=== PATIENT | female | born 1985 | race Caucasian/White ===

== ENCOUNTER 2021-05-13 12:09 | Inpatient (IN) | payer SELFPAY ==
--- NOTE | 2021-05-13 14:07 | US ---
Biophysical profile: Multiple real-time images were obtained. Comparison: No previous study for current . Dates: Working TARA: 05/08/21, gestational age 40 weeks 5 days Current ultrasound: TARA 05/13/21, gestational age 40 weeks 0 days presentation: Breech Placenta: Posterior Amniotic fluid: KEYANA 15.8 cm Measurements: BPD: 9.70 cm - 39 weeks 5 days Head circumference: 34.26 cm - 39 weeks 4 days Abdominal circumference: 36.50 cm - 40 weeks 3 days Femur length: 7.79 cm - 39 weeks 6 days Estimated weight: 3984 g (8 lbs. 13 oz.), estimated weight at the 79th percentile for age by ultrasound Heart rate: 131 bpm Cervical length: 3.9 cm Biophysical profile: movement 2, breathing movement 2, tone 2, amniotic fluid volume 2 Impression: 1. Single intrauterine fetus currently breech in presentation. Dates as noted above. 2. 8 out of 8 on biophysical profile. Diagnostic code #1
[2021-05-14] MEDS ORDERED: Ondansetron 4 MG/2 ML SDV IVPUSH PRN ×2 (00:45→13:18)
[2021-05-14] MEDS ORDERED: Oxytocin/Lactated Ringers 10 UNIT/1,000 ML BAG IV SCH (00:45)
--- NOTE | 2021-05-14 05:30 | PCM.LDHP ---
L&D History of Present Illness - General Date of Service: 05/14/21 Admit Problem/Dx: Patient Status Order with Admit Dx/Problem 05/13/21 12:22 Patient Status [ADT] Routine 05/14/21 00:45 Patient Status [ADT] Stat Admission Diagnosis/Problem Admission Diagnosis/Problem Source of Information: Patient - History of Present Illness Introduction:: 35 year old at 40w5d by LMP consistent with ultrasound yesterday. Care with a tennis player. Planning to deliver at home but presented for "bpp and NST" for decreased movement. Two prior sections. On ultrasound was breech so agreed to repeat section. Did leave AMA first to go home and see her kids prior. Returned later than discussed and decision made for scheduled in the morning as reactive NST. Improves with: Reports: None Worsens with: Reports: None Associated Symptoms: Reports: N - Related Data Allergies/Adverse Reactions: Allergies Allergy/AdvReac Type Severity Reaction Status Date / Time Sulfa (Sulfonamide Allergy Shortness Verified 05/13/21 13:22 Antibiotics) of Breath Home Medications: Home Meds [place]-3 Fatty Acids/Fish Oil [[facility] Fish Oil 1,200 mg Softgel] 1 each PO DAILY 05/13/21 [History] No122/Iron/Folic Acid [ Multi Tablet] 1 each PO DAILY 05/13/21 [History] Past Medical History Genitourinary History: Reports: Other (See Below) Other Genitourinary History: Kidney stones during this , resolved 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: , Other (See Below) Other OB/BYN History: Previous x2 Musculoskeletal History: Reports: None - Past Surgical History Female Surgical History: Reports: None Musculoskeletal Surgical History: Reports: ORIF, Other (See Below) Other Musculoskeletal Surgeries/Procedures:: Right foot ORIF Dermatological Surgical History: Reports: None Social & Family History - Family History Family Medical History: No Pertinent Family History - Tobacco Use Tobacco Use Status *Q: Never Tobacco User Second Hand Smoke Exposure: No - Recreational Drug Use Recreational Drug Use: No H&P Review of Systems - Review of Systems: Review Of Systems: See Below General: Reports: No Symptoms HEENT: Reports: No Symptoms Pulmonary: Reports: No Symptoms Cardiovascular: Reports: No Symptoms Gastrointestinal: Reports: No Symptoms Genitourinary: Reports: No Symptoms Musculoskeletal: Reports: No Symptoms Skin: Reports: No Symptoms Psychiatric: Reports: No Symptoms Neurological: Reports: No Symptoms Hematologic/Lymphatic: Reports: No Symptoms Immunologic: Reports: No Symptoms L&D Exam - Exam Exam: See Below - Vital Signs Vital Signs: Last Vital Signs Temp 36.7 C 05/13/21 20:15 Pulse 85 05/13/21 20:15 Resp 16 05/13/21 20:15 BP 118/55 L 05/13/21 20:15 Pulse Ox 99 05/13/21 20:15 Weight: 69.4 kg - Exam General: Alert, Oriented HEENT: PERRLA, Conjunctiva Clear, EACs Clear, EOMI, Hearing Intact, Mucosa Moist & Victor, Nares Patent, Normal Nasal Septum, Posterior Pharynx Clear, TMs Clear Neck: Supple, Trachea Midline Lungs: Clear to Auscultation, Normal Respiratory Effort Cardiovascular: Regular Rate, Regular Rhythm GI/Abdominal Exam: Normal Bowel Sounds, Soft, Non-Tender, No Organomegaly, No Distention, No Abnormal Bruit, No Mass, Pelvis Stable Back Exam: Normal Inspection, Full Range of Motion Extremities: Normal Inspection, Normal Range of Motion, Non-Tender, No Pedal Kyle ma, Normal Capillary Refill Skin: Warm, Dry, Intact Neurological: Cranial Nerves Intact, Reflexes Equal Bilateral Psychiatric: Alert, Normal Affect, Normal Mood - Patient Data Lab Results Last 24 hrs: Laboratory Results - last 24 hr 05/13/21 05/13/21 05/13/21 Range/Units 15:40 16:00 16:00 WBC 12.96 H (3.98-10.04) K/mm3 RBC 4.63 (3.98-5.22) M/mm3 Hgb 12.9 (11.2-15.7) gm/dl Hct 39.6 (34.1-44.9) % MCV 85.5 (79.4-94.8) fl MCH 27.9 (25.6-32.2) pg MCHC 32.6 (32.2-35.5) g/dl RDW Std Deviation 40.3 (36.4-46.3) fL Plt Count 237 (182-369) K/mm3 MPV 9.5 (9.4-12.3) fl Neut % (Auto) 77.7 H (34.0-71.1) % Lymph % (Auto) 13.7 L (19.3-51.7) % [place] % (Auto) 7.2 (4.7-12.5) % Eos % (Auto) 0.4 L (0.7-5.8) Baso % (Auto) 0.2 (0.1-1.2) % Neut # (Auto) 10.08 H (1.56-6.13) K/mm3 Lymph # (Auto) 1.78 (1.18-3.74) K/mm3 [place] # (Auto) 0.93 H (0.24-0.36) K/mm3 Eos # (Auto) 0.05 (0.04-0.36) K/mm3 Baso # (Auto) 0.02 (0.01-0.08) K/mm3 RPR Non-reactive (NONREACTIVE) HIV-1 Ab Rapid Screen (NEGATIVE) SARS-CoV-2 RNA (KATIE) Negative (NEGATIVE) Blood Type Gel Antibody Screen 05/13/21 05/13/21 Range/Units 16:00 16:00 WBC (3.98-10.04) K/mm3 RBC (3.98-5.22) M/mm3 Hgb (11.2-15.7) gm/dl Hct (34.1-44.9) % MCV (79.4-94.8) fl MCH (25.6-32.2) pg MCHC (32.2-35.5) g/dl RDW Std Deviation (36.4-46.3) fL Plt Count (182-369) K/mm3 MPV (9.4-12.3) fl Neut % (Auto) (34.0-71.1) % Lymph % (Auto) (19.3-51.7) % [place] % (Auto) (4.7-12.5) % Eos % (Auto) (0.7-5.8) Baso % (Auto) (0.1-1.2) % Neut # (Auto) (1.56-6.13) K/mm3 Lymph # (Auto) (1.18-3.74) K/mm3 [place] # (Auto) (0.24-0.36) K/mm3 Eos # (Auto) (0.04-0.36) K/mm3 Baso # (Auto) (0.01-0.08) K/mm3 RPR (NONREACTIVE) HIV-1 Ab Rapid Screen Negative (NEGATIVE) SARS-CoV-2 RNA (KATIE) (NEGATIVE) Blood Type O POSITIVE Gel Antibody Screen Negative Result Diagrams: 05/13/21 16:00 Problem List Initiated/Reviewed/Updated: Yes Orders Last 24hrs: Active Orders 24 hr Category Date Time Status Patient Status [ADT] Stat ADT 05/14/21 00:45 Active Antiembolic Devices [RC] PER UNIT ROUTINE Care 05/14/21 00:46 Active Communication Order [RC] ROUTINE Care 05/14/21 00:45 Active Heart Tones [RC] PER UNIT ROUTINE Care 05/14/21 00:45 Active Non Stress Test [RC] PER UNIT ROUTINE Care 05/13/21 12:22 Active Insert Urinary Catheter [OM.PC] Routine Care 05/14/21 00:45 Ordered Peripheral IV Care [RC] . DIRECTED Care 05/14/21 00:46 Active Procedure Site Prep Instruct [RC] ASDIRECTED Care 05/14/21 00:45 Active Urinary Catheter Assessment [RC] ASDIRECTED Care 05/14/21 00:46 Active Verify Patient Consent Obtain [RC] PER UNIT ROUTINE Care 05/14/21 00:45 Active Vital Signs [RC] PER UNIT ROUTINE Care 05/13/21 12:22 Active Vital Signs [RC] PFP Care 05/14/21 00:45 Active Nothing Per Oral Diet [DIET] Diet 05/14/21 Breakfast Active HEPATITIS B SURFACE AG [CHEM] Stat Lab 05/13/21 16:00 Received RUBELLA ANTIBODY IGG [CHEM] Stat Lab 05/13/21 16:00 Received Citric Acid/Sodium Citrate [Bicitra Solution] Med 05/14/21 10:00 Once 30 ml PO ONETIME ONE Lactated Ringers [Ringers, Lactated] 1,000 ml Med 05/14/21 00:45 Active IV ASDIRECTED Metoclopramide [Reglan] Med 05/14/21 10:00 Once 10 mg IVPUSH ONETIME ONE Ondansetron [Zofran] Med 05/14/21 00:45 Active 4 mg IVPUSH Q4H PRN Oxytocin/Lactated Ringers [Pitocin in LR 10 Units/1,000 Med 05/14/21 00:45 Active ML] 10 unit in 1,000 ml IV ASDIRECTED Sodium Chloride 0.9% [Saline Flush] Med 05/14/21 09:00 Active 10 ml FLUSH 899,2099 ceFAZolin [Ancef] 2 gm Med 05/14/21 06:00 Active Premix Bag 1 bag IV ONETIME OB Panel [OM.PC] Stat Oth 05/13/21 15:40 Ordered Peripheral IV Insertion Adult [OM.PC] Routine Oth 05/14/21 00:45 Ordered Schedule Procedure [COMM] Per Unit Routine Oth 05/14/21 00:45 Ordered Sequential Compression Device [OM.PC] Routine Oth 05/14/21 00:45 Ordered Resuscitation Status Routine Resus Stat 05/13/21 12:22 Ordered Medication Orders Citric Acid/Sodium Citrate (Citric Acid/Sodium Citrate Solution 30 Ml Cup) 30 ml PO ONETIME ONE Stop: 05/14/21 10:01 Lactated Ringer's (Ringers, Lactated) 1,000 mls @ 125 mls/hr IV ASDIRECTED [facility] Cefazolin Sodium/Dextrose 2 gm (/ Premix) 50 mls @ 100 mls/hr IV ONETIME ONE Stop: 05/14/21 06:29 Oxytocin/Lactated Ringer's (Pitocin In Lr 10 Units/1,000 Ml) 10 unit in 1,000 mls @ 100 mls/hr IV ASDIRECTED [facility]; Protocol Metoclopramide HCl (Metoclopramide 10 Mg/2 Ml Sdv) 10 mg IVPUSH ONETIME ONE Stop: 05/14/21 10:01 Ondansetron HCl (Ondansetron 4 Mg/2 Ml Sdv) 4 mg IVPUSH Q4H PRN PRN Reason: Nausea/Vomiting Sodium Chloride (Sodium Chloride 0.9% 10 Ml Syringe) 10 ml FLUSH 0900,2100 [facility] Assessment/Plan Comment:: Term patient with no care, planned home delivery but agrees to repeat for breech. Risks, benefits and alternatives discussed and she states understanding and wishes to proceed. Labs pending.
[2021-05-14] MEDS ORDERED: ceFAZolin 2 GM in Premix Bag 1 BAG IV ONE ×2 (06:00→10:15)
[2021-05-14] MEDS ORDERED: Sodium Chloride 0.9% 10 ML Syringe FLUSH SCH (09:00)
[2021-05-14] MEDS ORDERED: Citric Acid/Sodium Citrate Solution 30 ML Cup PO ONE (10:00)
[2021-05-14] MEDS ORDERED: Metoclopramide 10 MG/2 ML SDV IVPUSH ONE (10:00)
[2021-05-14] MEDS: Lactated Ringers 1,000 ML IV SCH ×2 (10:14→12:06)
--- NOTE | 2021-05-14 10:24 | PCM.PREANE ---
Preanesthetic Assessment - Procedure Proposed Procedure: - Anesthesia/Transfusion/Family Hx Anesthesia History: Prior Anesthesia Without Reaction Family History of Anesthesia Reaction: No Transfusion History: No Prior Transfusion(s) Intubation History: Unknown - Review of Systems General: No Symptoms Pulmonary: No Symptoms Cardiovascular: No Symptoms Gastrointestinal: Abdominal Pain (uterine contractions) Neurological: No Symptoms Other: Reports: None - Physical Assessment NPO Status Date: 05/13/21 NPO Status Time: 23:00 Vital Signs: Last Vital Signs Temp 98.0 F 05/13/21 20:15 Pulse 85 05/13/21 20:15 Resp 16 05/13/21 20:15 BP 118/55 L 05/13/21 20:15 Pulse Ox 99 05/13/21 20:15 Height: 1.65 m Weight: 69.4 kg ASA Class: 2 Mental Status: Alert & Oriented x3 Airway Class: Mallampati = 2 Dentition: Reports: Normal Dentition Thyro-Mental Finger Breadths: 3 Mouth Opening Finger Breadths: 3 ROM/Head Extension: Full Lungs: Clear to Auscultation, Normal Respiratory Effort Cardiovascular: Regular Rate, Regular Rhythm (very mild murmur noted on exam) - Lab Values: Laboratory Last Values WBC 12.96 K/mm3 (3.98-10.04) H 05/13/21 16:00 RBC 4.63 M/mm3 (3.98-5.22) 05/13/21 16:00 Hgb 12.9 gm/dl (11.2-15.7) 05/13/21 16:00 Hct 39.6 % (34.1-44.9) 05/13/21 16:00 MCV 85.5 fl (79.4-94.8) 05/13/21 16:00 MCH 27.9 pg (25.6-32.2) 05/13/21 16:00 MCHC 32.6 g/dl (32.2-35.5) 05/13/21 16:00 RDW Std Deviation 40.3 fL (36.4-46.3) 05/13/21 16:00 Plt Count 237 K/mm3 (182-369) 05/13/21 16:00 MPV 9.5 fl (9.4-12.3) 05/13/21 16:00 Neut % (Auto) 77.7 % (34.0-71.1) H 05/13/21 16:00 Lymph % (Auto) 13.7 % (19.3-51.7) L 05/13/21 16:00 [place] % (Auto) 7.2 % (4.7-12.5) 05/13/21 16:00 Eos % (Auto) 0.4 (0.7-5.8) L 05/13/21 16:00 Baso % (Auto) 0.2 % (0.1-1.2) 05/13/21 16:00 Neut # (Auto) 10.08 K/mm3 (1.56-6.13) H 05/13/21 16:00 Lymph # (Auto) 1.78 K/mm3 (1.18-3.74) 05/13/21 16:00 [place] # (Auto) 0.93 K/mm3 (0.24-0.36) H 05/13/21 16:00 Eos # (Auto) 0.05 K/mm3 (0.04-0.36) 05/13/21 16:00 Baso # (Auto) 0.02 K/mm3 (0.01-0.08) 05/13/21 16:00 RPR Non-reactive (NONREACTIVE) 05/13/21 16:00 HIV-1 Ab Rapid Screen Negative (NEGATIVE) 05/13/21 16:00 SARS-CoV-2 RNA (KATIE) Negative (NEGATIVE) 05/13/21 15:40 Blood Type O POSITIVE 05/13/21 16:00 Gel Antibody Screen Negative 05/13/21 16:00 - Allergies Allergies/Adverse Reactions: Allergies Allergy/AdvReac Type Severity Reaction Status Date / Time Sulfa (Sulfonamide Allergy Shortness Verified 05/13/21 13:22 Antibiotics) of Breath - Acknowledgements Anesthesia Type Planned: General Anesthesia, Spinal Pt an Appropriate Candidate for the Planned Anesthesia: Yes Alternatives and Risks of Anesthesia Discussed w Pt/Guardian: Yes Pt/Guardian Understands and Agrees with Anesthesia Plan: Yes PreAnesthesia Questionnaire HEENT History: Reports: None Cardiovascular History: Reports: Heart Murmur (very mild on exam-patient has no history of murmur) Respiratory History: Reports: None Gastrointestinal History: Reports: None Genitourinary History: Reports: Other (See Below) Other Genitourinary History: Kidney stones during this , resolved 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: , Other (See Below) Other OB/BYN History: Previous x2 Musculoskeletal History: Reports: None Neurological History: Reports: None Psychiatric History: Reports: None Endocrine/Metabolic History: Reports: None Hematologic History: Reports: None Immunologic History: Reports: None Oncologic (Cancer) History: Reports: None Dermatologic History: Reports: None - Past Surgical History Female Surgical History: Reports: Section (x2) Musculoskeletal Surgical History: Reports: ORIF, Other (See Below) Other Musculoskeletal Surgeries/Procedures:: Right foot ORIF Dermatological Surgical History: Reports: None - SUBSTANCE USE Tobacco Use Status *Q: Never Tobacco User Tobacco Use Within Last Twelve Months: No Second Hand Smoke Exposure: No Days Per Week of Alcohol Use: 0 Number of Drinks Per Day: 0 Total Drinks Per Week: 0 Recreational Drug Use History: No - HOME MEDS Home Medications: Home Meds [place] Part-3 Fatty Acids/Fish Oil [[facility]vs Fish Oil 1,200 mg Softgel] 1 each PO DAILY 05/13/21 [History] No122/Iron/Folic Acid [ Multi Tablet] 1 each PO DAILY 05/13/21 [History] - CURRENT (IN HOUSE) MEDS Current Meds: Current Medications Lactated Ringer's (Ringers, Lactated) 1,000 mls @ 125 mls/hr IV ASDIRECTED [facility] Last Admin: 05/14/21 10:14 Dose: 125 mls/hr Documented by: Oxytocin/Lactated Ringer's (Pitocin In Lr 10 Units/1,000 Ml) 10 unit in 1,000 mls @ 100 mls/hr IV ASDIRECTED [facility]; Protocol Cefazolin Sodium/Dextrose 2 gm (/ Premix) 50 mls @ 100 mls/hr IV ONETIME ONE Stop: 05/14/21 10:44 Ondansetron HCl (Ondansetron 4 Mg/2 Ml Sdv) 4 mg IVPUSH Q4H PRN PRN Reason: Nausea/Vomiting Sodium Chloride (Sodium Chloride 0.9% 10 Ml Syringe) 10 ml FLUSH 0900,2100 [facility] Discontinued Medications Citric Acid/Sodium Citrate (Citric Acid/Sodium Citrate Solution 30 Ml Cup) 30 ml PO ONETIME ONE Stop: 05/14/21 10:01 Metoclopramide HCl (Metoclopramide 10 Mg/2 Ml Sdv) 10 mg IVPUSH ONETIME ONE Stop: 05/14/21 10:01
[2021-05-14] MEDS ORDERED: Bupivacaine 0.5% 30 ML SDV ONE (11:05)
[2021-05-14] MEDS ORDERED: Lactated Ringers 1,000 ML ONE (11:12)
[2021-05-14] MEDS ORDERED: Ondansetron 4 MG/2 ML SDV ONE (11:12)
[2021-05-14] MEDS ORDERED: Ketorolac 30 MG/ML SDV ONE (11:12)
[2021-05-14] MEDS ORDERED: Oxytocin 10 Units/1 ML SDV ONE ×2 (11:12→12:47)
[2021-05-14] MEDS ORDERED: Morphine PF 10 MG/10 ML SDV ONE (11:13)
[2021-05-14] MEDS ORDERED: ePHEDrine 50 MG/ML SDV ONE (12:25)
[2021-05-14] MEDS ORDERED: fentaNYL 100 MCG/2 ML SDV IVPUSH PRN (13:18)
[2021-05-14] MEDS ORDERED: diphenhydrAMINE 50 MG/ML SDV IVPUSH PRN ×2 (13:18→14:35)
--- NOTE | 2021-05-14 13:18 | PCM.POSTAN ---
POST ANESTHESIA ASSESSMENT - MENTAL STATUS Mental Status: Alert, Oriented - VITAL SIGNS Vital Signs: Last Vital Signs Temp 36.7 C 05/14/21 10:55 Pulse 78 05/14/21 10:55 Resp 16 05/14/21 10:55 BP 114/58 L 05/14/21 10:55 Pulse Ox 100 05/14/21 10:55 - RESPIRATORY Respiratory Status: Respiratory Rate WNL, Airway Patent, O2 Saturation Stable - CARDIOVASCULAR CV Status: Pulse Rate WNL, Blood Pressure Stable - GASTROINTESTINAL GI Status: No Symptoms - PAIN Pain Score: 2 - POST OP HYDRATION Hydration Status: Adequate & Stable
--- NOTE | 2021-05-14 13:27 | PCM.OPNOTE ---
- General Post-Op/Procedure Note Date of Surgery/Procedure: 05/14/21 Operative Procedure(s): section Findings: viable female, weight 9#, APGARS 8/9 at 1239. Normal pelvic anatomy Pre Op Diagnosis: prior , desires repeat Post-Op Diagnosis: Same Anesthesia Technique: Spinal Primary Surgeon: Marilu Alvarado Die Casting Machine Maintainer: Juan Francisco Reynoso Fluid Replacement, Intraop: 1,500 Output, Urine Amount: 350 EBL in mLs: 1,050 Complications: None Condition: Stable Free Text/Narrative:: The patient was taken to the operating room where spinal anesthesia was dosed to surgical levels without difficulty. The patient was prepped and draped in the usual sterile fashion in the dorsal supine position with a leftward tilt. A Pfannenstiel skin incision was made with the scalpel and carried through to the underlying layer of fascia. The fascia was incised in the midline and extended laterally using Cifuentes scissors. Fide clamps were used to elevate the superior aspect of the fascial incision, which was elevated, and the underlying rectus muscles were dissected off bluntly and using Cifuentes scissors. Attention was then turned to the inferior aspect of the fascial incision, which in similar fashion was grasped with Fide clamps, elevated, and the underlying rectus muscles were dissected off bluntly and using the cifuentes. The rectus muscles were dissected in the midline. The peritoneum was entered bluntly; this incision was extended superiorly and inferiorly with good visualization of the bladder. The bladder blade was inserted. The vesicouterine peritoneum was identified and entered sharply using Metzenbaum scissors. This incision was extended laterally and the bladder flap was created digitally. The bladder blade was reinserted. The lower uterine segment was incised in a transverse fashion using the scalpel and with digital traction. Clear fluid was noted. The infant was subsequently delivered by flexing the head to the incision. Body and shoulders followed without difficulty. The cord was clamped and cut at 90 seconds of life after pulsation stopped. The was subsequently handed to the awaiting nursery nurse and curator of manuscripts whose presence had been requested.. The placenta was delivered spontaneously intact with a three-vessel cord noted. The uterus was exteriorized and cleared of all clots and debris. The uterine incision was repaired in 2 layers using 0 monocryl. Hemostasis was visualized. Hemostasis was visualized bilaterally. The uterus was returned to the abdomen. The uterine incision was reexamined and it was noted to be hemostatic. The pelvis was copiously irrigated. The fascia was closed with 1 PDS suture, and the skin was closed with 3-0 monocryl. Sponge, lap, and instrument counts were correct x2. The patient was stable at the completion of the procedure and was subsequently transferred to the recovery room in stable condition.
[2021-05-14] MEDS ORDERED: Dextrose 5%-Lactated Ringers 1,000 ML IV SCH (14:35)
[2021-05-14] MEDS ORDERED: ePHEDrine 50 MG/ML SDV IVPUSH PRN (14:35)
[2021-05-14] MEDS ORDERED: Naloxone 0.4 MG/ML SDV IVPUSH PRN (14:35)
[2021-05-14] MEDS ORDERED: Acetaminophen/oxyCODONE 325-5 MG Tab PO PRN (14:35)
[2021-05-14] MEDS ORDERED: Dextrose 5%-Lactated Ringers 1,000 ML ONE (14:40)
[2021-05-14] MEDS: Ibuprofen 600 MG Tab PO PRN (23:59)
[2021-05-15] MEDS: Acetaminophen/oxyCODONE 325-5 MG Tab PO PRN ×3 (07:42→20:56)
--- NOTE | 2021-05-15 07:49 | PCM48HPAN ---
Post Anesthesia Note - EVALUATION WITHIN 48HRS OF ANESTHETIC Vital Signs in Normal Range: Yes Patient Participated in Evaluation: Yes Respiratory Function Stable: Yes Airway Patent: Yes Cardiovascular Function Stable: Yes Hydration Status Stable: Yes Pain Control Satisfactory: Yes Nausea and Vomiting Control Satisfactory: Yes Mental Status Recovered: Yes Vital Signs: Last Vital Signs Temp 36.4 C 05/15/21 03:33 Pulse 62 05/15/21 03:33 Resp 14 05/15/21 07:00 BP 102/55 L 05/15/21 03:33 Pulse Ox 98 05/15/21 03:33 - COMMENTS/OBSERVATIONS Free Text/Narrative:: mild aching in back. consulted this can be normal. pt voiced understanding. no questions or concerns. RN at bedside during assessment.
[2021-05-15] MEDS: Ibuprofen 600 MG Tab PO PRN ×2 (10:54→18:53)
--- NOTE | 2021-05-15 13:06 | PCM.SN.2 ---
- Free Text/Narrative Note: Post Operative Progress Note POD #1 Subjective: Doing well overall. Ambulating without difficulty. Lochia minimal. Ramirez draining clear urine. Not passing flatus at this. Tolerating regular diet without nausea or vomiting. Pain controlled with oral medications. Breast- feeding with minimal difficulty. Objective: Vitals: Vital Signs - 8 hr 05/15/21 05/15/21 05/15/21 09:00 10:00 11:05 Temperature 37.1 C Pulse, 75 Peripheral Respiratory 16 18 16 Rate Blood Pressure 114/52 L O2 Sat by Pulse 98 97 Oximetry Physical Exam General: Alert and oriented, no acute distress Lungs: Clear to auscultation bilaterally Heart: Regular rate and rhythm Abdomen: Soft, minimal appropriate tenderness, non-distended, fundus midline, nontender and at the umbilicus Incision: Clean, dry and intact, no erythema, bleeding or drainage with Steri- Strips in place Extremities: No edema in bilateral lower extremities, no calf tenderness bilaterally Labs: Laboratory Results - last 24 hr 05/13/21 05/15/21 Range/Units 16:00 06:20 WBC 12.70 H (3.98-10.04) K/mm3 RBC 3.95 L (3.98-5.22) M/mm3 Hgb 10.8 L D (11.2-15.7) gm/dl Hct 34.3 (34.1-44.9) % MCV 86.8 (79.4-94.8) fl MCH 27.3 (25.6-32.2) pg MCHC 31.5 L (32.2-35.5) g/dl RDW Std Deviation 40.9 (36.4-46.3) fL Plt Count 195 (182-369) K/mm3 MPV 9.1 L (9.4-12.3) fl Neut % (Auto) 77.9 H (34.0-71.1) % Lymph % (Auto) 11.5 L (19.3-51.7) % [place] % (Auto) 9.2 (4.7-12.5) % Eos % (Auto) 0.6 L (0.7-5.8) Baso % (Auto) 0.2 (0.1-1.2) % Neut # (Auto) 9.89 H (1.56-6.13) K/mm3 Lymph # (Auto) 1.46 (1.18-3.74) K/mm3 [place] # (Auto) 1.17 H (0.24-0.36) K/mm3 Eos # (Auto) 0.08 (0.04-0.36) K/mm3 Baso # (Auto) 0.02 (0.01-0.08) K/mm3 Hep Bs Antigen Nonreactive (NONREACTIVE) Rubella IgG Antibody Reactive (pos) (REACTIVE) ASSESSMENT: 35-year-old female -0-0-6 s/p repeat section POD #1 for history of section, complicated by history of section and care with a late rn assessment PLAN: Doing well Breast-feeding with minimal difficulty. Assist as needed Incision healing well. Continue to keep clean and dry. Lochia minimal. Continue to monitor for appropriate lochia. Continue routine post-operative care Anticipate discharge home tomorrow Juan Francisco Reynoso MD 1:05 PM 05/15/2021
[2021-05-16] MEDS: Acetaminophen/oxyCODONE 325-5 MG Tab PO PRN ×2 (02:30→09:32)
[2021-05-16] MEDS: Ibuprofen 600 MG Tab PO PRN ×2 (02:30→09:31)
[2021-05-16 03:14] VITALS: PULSE 63
--- NOTE | 2021-05-16 08:28 | PCM.DCSUM1 ---
Discharge Summary - Hospital Course Diagnosis: Stroke: No - Discharge Data Discharge Date: 05/16/21 Discharge Disposition: Home, Self-Care 01 Condition: Stable - Referral to Home Health Primary Care Physician: PCP None - Patient Summary/Data Operative Procedure(s) Performed: section - Patient Instructions Diet: Usual Diet as Tolerated Activity: No Strenuous Activities Driving: May Drive Today Notify Provider of: Fever, Increased Pain, Swelling and Redness, Drainage, Nausea and/or Vomiting - Discharge Plan *PRESCRIPTION DRUG MONITORING PROGRAM REVIEWED*: Yes *COPY OF PRESCRIPTION DRUG MONITORING REPORT IN PATIENT FRED: No Prescriptions/Med Rec: Acetaminophen/oxyCODONE [Percocet 325-5 MG] 1 - 2 tab PO Q4H PRN #30 tablet PRN Reason: Pain Home Medications: Home Meds [place]-3 Fatty Acids/Fish Oil [[facility] Fish Oil 1,200 mg Softgel] 1 each PO DAILY 05/13/21 [History] No122/Iron/Folic Acid [ Multi Tablet] 1 each PO DAILY 05/13/21 [History] Acetaminophen/oxyCODONE [Percocet 325-5 MG] 1 - 2 tab PO Q4H PRN #30 tablet 05/15/21 [Rx] Ibuprofen [Motrin] 600 mg PO Q6H PRN tablet 05/15/21 [Rx] Referrals: Marilu Alvarado MD [Physician] - (2 weeks) - Discharge Summary/Plan Comment DC Time >30 min.: No Total # of Minutes for Discharge Time: 15 - General Info Date of Service: 05/16/21 Functional Status: Reports: Pain Controlled - Review of Systems General: Reports: No Symptoms HEENT: Reports: No Symptoms Pulmonary: Reports: No Symptoms Cardiovascular: Reports: No Symptoms Gastrointestinal: Reports: No Symptoms Genitourinary: Reports: No Symptoms Musculoskeletal: Reports: No Symptoms Skin: Reports: No Symptoms Neurological: Reports: No Symptoms Psychiatric: Reports: No Symptoms - Patient Data Vitals - Most Recent: Last Vital Signs Temp 36.7 C 05/15/21 21:00 Pulse 63 05/16/21 02:33 Resp 14 05/15/21 21:00 BP 122/59 L 05/16/21 02:33 Pulse Ox 98 05/16/21 02:33 Weight - Most Recent: 69.4 kg I&O - Last 24 hours: Intake & Output 05/15/21 05/16/21 05/16/21 22:59 06:59 14:59 Intake Total 895 900 Output Total 600 Balance 295 900 Med Orders - Current: Current Medications Diphenhydramine HCl (Diphenhydramine 50 Mg/Ml Sdv) 25 mg IVPUSH Q6H PRN PRN Reason: Itching or Nausea Ephedrine Sulfate (Ephedrine 50 Mg/Ml Sdv) 5 mg IVPUSH SEECOMMENT PRN PRN Reason: Other Fentanyl (Fentanyl 100 Mcg/2 Ml Sdv) 50 mcg IVPUSH Q5M PRN PRN Reason: Pain Ibuprofen (Ibuprofen 600 Mg Tab) 600 mg PO Q6H PRN PRN Reason: mild pain or fever Last Admin: 05/16/21 02:30 Dose: 600 mg Documented by: Naloxone HCl (Naloxone 0.4 Mg/Ml Sdv) 0.1 mg IVPUSH SEECOMMENT PRN PRN Reason: Respiratory Depression Ondansetron HCl (Ondansetron 4 Mg/2 Ml Sdv) 4 mg IVPUSH ONETIME PRN PRN Reason: Nausea/Vomiting Oxycodone/Acetaminophen (Acetaminophen/Oxycodone 325-5 Mg Tab) 1 tab PO Q4H PRN PRN Reason: Pain (moderate 4-6) Last Admin: 05/16/21 02:30 Dose: 1 tab Documented by: Oxycodone/Acetaminophen (Acetaminophen/Oxycodone 325-5 Mg Tab) 2 tab PO Q4H PRN PRN Reason: Pain (severe 7-10) Discontinued Medications Bupivacaine HCl (Bupivacaine 0.5% 30 Ml Sdv) Confirm Administered Dose 30 ml .ROUTE .STK-MED ONE Stop: 05/14/21 11:06 Last Admin: 05/14/21 12:35 Dose: 15 ml Documented by: Citric Acid/Sodium Citrate (Citric Acid/Sodium Citrate Solution 30 Ml Cup) 30 ml PO ONETIME ONE Stop: 05/14/21 10:01 Last Admin: 05/14/21 12:07 Dose: 30 ml Documented by: Diphenhydramine HCl (Diphenhydramine 50 Mg/Ml Sdv) 25 mg IVPUSH Q6H PRN PRN Reason: Pruritis Stop: 05/14/21 23:00 Ephedrine Sulfate (Ephedrine 50 Mg/Ml Sdv) Confirm Administered Dose 50 mg .ROUTE .STK-MED ONE Stop: 05/14/21 12:26 Lactated Ringer's (Ringers, Lactated) 1,000 mls @ 125 mls/hr IV ASDIRECTED [facility] Last Admin: 05/14/21 12:06 Dose: 125 mls/hr Documented by: Oxytocin/Lactated Ringer's (Pitocin In Lr 10 Units/1,000 Ml) 10 unit in 1,000 mls @ 100 mls/hr IV ASDIRECTED [facility]; Protocol Cefazolin Sodium/Dextrose 2 gm (/ Premix) 50 mls @ 100 mls/hr IV ONETIME ONE Stop: 05/14/21 10:44 Last Admin: 05/14/21 19:55 Dose: Not Given Documented by: Lactated Ringer's (Ringers, Lactated) Confirm Administered Dose 1,000 mls @ as directed .ROUTE .STK-MED ONE Stop: 05/14/21 11:13 Dextrose/Lactated Ringer's (Dextrose 5%-Lactated Ringers) 1,000 mls @ 125 mls/hr IV ASDIRECTED [facility] Stop: 05/14/21 22:34 Last Admin: 05/14/21 15:15 Dose: 125 mls/hr Documented by: Dextrose/Lactated Ringer's (Dextrose 5%-Lactated Ringers) Confirm Administered Dose 1,000 mls @ as directed .ROUTE .STK-MED ONE Stop: 05/14/21 14:41 Last Admin: 05/14/21 19:55 Dose: Not Given Documented by: Ketorolac Tromethamine (Ketorolac 30 Mg/Ml Sdv) Confirm Administered Dose 30 mg .ROUTE .STK-MED ONE Stop: 05/14/21 11:13 Metoclopramide HCl (Metoclopramide 10 Mg/2 Ml Sdv) 10 mg IVPUSH ONETIME ONE Stop: 05/14/21 10:01 Last Admin: 05/14/21 12:07 Dose: 10 mg Documented by: Miscellaneous Medication (Phenylephrine Hcl In 0.9% Nacl 1 Mg/10 Ml Syringe) Confirm Administered Dose 1 mg .ROUTE .STK-MED ONE Stop: 05/14/21 12:25 Morphine Sulfate (Morphine Pf 10 Mg/10 Ml Sdv) Confirm Administered Dose 10 mg .ROUTE .STK-MED ONE Stop: 05/14/21 11:14 Ondansetron HCl (Ondansetron 4 Mg/2 Ml Sdv) 4 mg IVPUSH Q4H PRN PRN Reason: Nausea/Vomiting Ondansetron HCl (Ondansetron 4 Mg/2 Ml Sdv) Confirm Administered Dose 4 mg .ROUTE .STK-MED ONE Stop: 05/14/21 11:13 Oxytocin (Oxytocin 10 Units/1 Ml Sdv) Confirm Administered Dose 10 unit .ROUTE .STK-MED ONE Stop: 05/14/21 11:13 Oxytocin (Oxytocin 10 Units/1 Ml Sdv) Confirm Administered Dose 10 unit .ROUTE .STK-MED ONE Stop: 05/14/21 12:48 Sodium Chloride (Sodium Chloride 0.9% 10 Ml Syringe) 10 ml FLUSH 0900,2100 TAVIA Last Admin: 05/14/21 19:55 Dose: Not Given Documented by: - Exam General: Reports: Alert, Oriented HEENT: Reports: Pupils Equal, Pupils Reactive, EOMI, Mucous Membr. Moist/[place] Neck: Reports: Supple Lungs: Reports: Clear to Auscultation, Normal Respiratory Effort Cardiovascular: Reports: Regular Rate, Regular Rhythm GI/Abdominal Exam: Normal Bowel Sounds, Soft, Non-Tender, No Organomegaly, No Distention, No Abnormal Bruit, No Mass, Pelvis Stable (Female) Exam: Normal Speculum Exam Rectal (Female) Exam: Normal Exam, Normal Rectal Tone Back Exam: Reports: Normal Inspection, Full Range of Motion Extremities: Normal Inspection, Normal Range of Motion, Non-Tender, No Pedal Edema, Normal Capillary Refill Wound/Incisions: Reports: Healing Well Neurological: Reports: No New Focal Deficit Psy/Mental Status: Reports: Alert, Normal Affect, Normal Mood
[2021-05-16 11:37] VITALS: BP 114/58
== END 2021-05-16 10:50 | disposition home or self-care (01) | DRG 788 ==
LOC: JD.OBCHECK 12:09 → JD.OB 12:14 → JD.OBCHECK 16:07 → JD.OB 19:34
PROVIDERS: ADMIT Obstetrics & Gynecology; ATTEND Obstetrics & Gynecology
PROC: 10D00Z1 Extraction of Products of Conception, Low, Open Approach (ICD-10-PCS; principal; 2021-05-14)
DX: O34.211 Maternal care for low transverse scar from previous cesarean delivery (principal); Z3A.40 40 weeks gestation of pregnancy; Z37.0 Single live birth; Z88.2 Allergy status to sulfonamides; Z20.822 Contact with and (suspected) exposure to COVID-19
CPT/HCPCS: 01961; 36415; 59020; 59025; 76816; 76819; 76819-26; 85025; 86592; 86762; 86850; 86900; 86901; 87340; A9270-GY; G0433; J1885; J2270; J2370; J2405; J2590; J2765; J3490; J7120; J7121; U0002

== ENCOUNTER 2021-05-21 14:47 | Emergency (ER) | payer SELFPAY ==
[2021-05-21 15:22] VITALS: BP 143/76; PULSE 85
[2021-05-21] MEDS ORDERED: methylPREDNISolone Sodium Succinate 125 MG/2 ML SDV IM ONE (15:55)
--- NOTE | 2021-05-21 16:03 | EDM.PDOC ---
ED HPI GENERAL MEDICAL PROBLEM - General Chief Complaint: Skin Complaint Stated Complaint: RASH Time Seen by Provider: 05/21/21 15:18 Source of Information: Reports: Patient, RN Notes Reviewed History Limitations: Reports: No Limitations - History of Present Illness INITIAL COMMENTS - FREE TEXT/NARRATIVE: Patient is a 35-year-old female who presents to the ER for her rash. She had a performed by Dr. Aguilar and Dr. Reynoso on 05/14, and noted that she had some mild itchiness/redness develop around the site of the tape more day later. Patient states since then it has spread, upper abdomen, down her legs, and up into her chest, she has had some mild crusting over the wound, she has had no fevers or chills or any sort of nausea/vomiting/diarrhea. She d id try to call her OB provider but they were out until next week. She went to the urgent care/walk-in clinic and has been prescribed some topical formulations, is tried some triamcinolone to the area, as well as Benadryl, Jenna, and many other [id number] medications. Patient states that it is itchy all over, and just really bothersome. Patient states that she has had issues like this in the past, when she is calm in contact with sulfa drugs, so this made her think it could be a possible allergic reaction. Abdomen Pain Score (Numeric/FACES): 6 - Related Data Allergies Allergy/AdvReac Type Severity Reaction Status Date / Time Sulfa (Sulfonamide Allergy Shortness Verified 05/21/21 15:22 Antibiotics) of Breath Home Meds: Home Meds [place]-3 Fatty Acids/Fish Oil [[facility] Fish Oil 1,200 mg Softgel] 1 each PO DAILY 05/13/21 [History] No122/Iron/Folic Acid [ Multi Tablet] 1 each PO DAILY 05/13/21 [History] Ibuprofen [Motrin] 600 mg PO Q6H PRN tablet 05/15/21 [Rx] Acetaminophen [Tylenol] 500 mg PO Q8H PRN 05/21/21 [History] Cefdinir [Omnicef] 300 mg PO BID 5 Days #10 cap 05/21/21 [Rx] Triamcinolone Acetonide [Triamcinolone Acetonide 0.1% Oint] 1 applic TOP BID 05/21/21 [History] methylPREDNISolone [Medrol Dose Pack] 4 mg PO ASDIRECTED #1 dospk 05/21/21 [Rx] Past Medical History HEENT History: Reports: None Cardiovascular History: Reports: Heart Murmur Respiratory History: Reports: None Gastrointestinal History: Reports: None Genitourinary History: Reports: Other (See Below) Other Genitourinary History: Kidney stones during this , resolved [employer] History: Reports: , Other (See Below) Other [employer] History: Previous x3 Musculoskeletal History: Reports: None Neurological History: Reports: None Psychiatric History: Reports: None Endocrine/Metabolic History: Reports: None Hematologic History: Reports: None Immunologic History: Reports: None Oncologic (Cancer) History: Reports: None Dermatologic History: Reports: None - Past Surgical History Female Surgical History: Reports: Section Musculoskeletal Surgical History: Reports: ORIF, Other (See Below) Other Musculoskeletal Surgeries/Procedures:: Right foot ORIF Dermatological Surgical History: Reports: None Social & Family History - Family History Family Medical History: No Pertinent Family History - Tobacco Use Tobacco Use Status *Q: Never Tobacco User - Caffeine Use Caffeine Use: Reports: Coffee - Recreational Drug Use Recreational Drug Use: No ED ROS GENERAL - Review of Systems Review Of Systems: Comprehensive ROS is negative, except as noted in HPI. ED EXAM, SKIN/RASH Exam: See Below Exam Limited By: No Limitations General Appearance: Alert, WD/WN, No Apparent Distress Respiratory/Chest: No Respiratory Distress, Lungs Clear, Normal Breath Sounds, No Accessory Muscle Use, Chest Non-Tender Cardiovascular: Normal Peripheral Pulses, Regular Rate, Rhythm, No Edema GI/Abdominal: Normal Bowel Sounds, Soft, No Distention, No Mass Extremities: Normal Inspection, Normal Capillary Refill Neurological: Alert, Oriented, Normal Cognition, No Motor/Sensory Deficits Psychiatric: Normal Affect, Normal Mood Skin: Warm, Dry, Intact, Erythema (Macular type lesions to the patient's abdomen, these are itchy), Wound/Incision ( wound in her low abdomen, there is some mild crusting noted.) Location, Skin: Chest, Abdomen, Upper Extremity, Left, Lower Extremity, Right, Lower Extremity, Left Characteristics: Maculopapular Associated features: Inflammation (About the lesions on her abdomen and chest.), Crusting (At the wound site) Course - Vital Signs Last Recorded V/S: Last Vital Signs Temp 98.7 F 05/21/21 15:15 Pulse 85 05/21/21 15:15 Resp 16 05/21/21 15:15 BP 143/76 H 05/21/21 15:15 Pulse Ox 97 05/21/21 15:15 - Orders/Labs/Meds Orders: Active Orders 24 hr Category Date Time Status methylPREDNISolone Sod Succ [Solu-MEDROL] Med 05/21/21 15:55 Once 125 mg IM ONETIME ONE - Re-Assessments/Exams Free Text/Narrative Re-Assessment/Exam: 05/21/21 16:02 Patient presents to the ER for evaluation of her rash on her abdomen. She has tried multiple [id number] medications, and some topical steroid creams and this does not seem to be helping much at all. We will try systemic steroids, she will be given IM Solu-Medrol in the ER, and we will send her home with a prescription for outpatient Medrol and trial her on antibiotics as well to see if this helps. She states she is going to follow-up with Dr. Alvarado next week hopefully. Departure - Departure Time of Disposition: 16:03 Disposition: Home, Self-Care 01 Condition: Good Clinical Impression: Rash and other nonspecific skin eruption, Pruritic rash - Discharge Information *PRESCRIPTION DRUG MONITORING PROGRAM REVIEWED*: No *COPY OF PRESCRIPTION DRUG MONITORING REPORT IN PATIENT FRED: No Prescriptions: methylPREDNISolone [Medrol Dose Pack] 4 mg PO ASDIRECTED #1 dospk Cefdinir [Omnicef] 300 mg PO BID 5 Days #10 cap Instructions: Rash, Adult, [id number] Additional Instructions: You were evaluated in the ER today for your skin rash on your abdomen that seems to be worsening. I would recommend that you discontinue use of most of the topical creams you have been given. You have been started on oral steroids and antibiotics to see if either of these medications can provide you relief. Please take these medications as prescribed. This medication was electronically sent to the [facility] located on [address]. Please follow-up with Dr. Alvarado next week for ongoing management and to make sure that the lesions are getting better as expected. If you should develop any fevers or chills, any sort of worsening symptoms, do not hesitate to return to the ER for further management. You may also take oral Benadryl for ongoing management of this, although this can make you sleepy throughout the day, so I would recommend caution in using this during the day. Sepsis Event Note (ED) - Evaluation Sepsis Screening Result: No Definite Risk - Focused Exam Vital Signs: Vital Signs Temp Pulse Resp BP Pulse Ox 05/21/21 15:15 98.7 F 85 16 143/76 H 97 - My Orders Last 24 Hours: My Active Orders 05/21/21 15:55 methylPREDNISolone Sod Succ [Solu-MEDROL] 125 mg IM ONETIME ONE - Assessment/Plan Last 24 Hours: My Active Orders 05/21/21 15:55 methylPREDNISolone Sod Succ [Solu-MEDROL] 125 mg IM ONETIME ONE
== END 2021-05-21 16:20 | disposition home or self-care (01) ==
LOC: JD.ED 14:47
DX: L29.9 Pruritus, unspecified (principal); Z88.2 Allergy status to sulfonamides
CPT/HCPCS: 96372; 99282; J2930